=== PATIENT | male | born 1980 | race Caucasian/White ===

== ENCOUNTER 2019-03-26 02:18 | Emergency (ER) | payer OTHER ==
[2019-03-26 03:01] LABS: ADD MAN DIFF? NO
[2019-03-26 03:04] LABS: BASOPHILS % 0.4 % (0.0-2.0); EOSINOPHILS # 0.1 10^3/ul (0.0-0.5); HEMATOCRIT 42.7 % (42.0-52.0); HEMOGLOBIN 13.5 g/dl (14.0-18.0); LYMPHOCYTES # 1.2 10^3/ul (0.8-2.9); LYMPHOCYTES % 13.6 % (15.0-51.0); MEAN CORPUSCULAR HEMOGLOBIN 28.7 pg (29.0-33.0); MEAN CORPUSCULAR HGB CONC 31.6 g/dl (32.0-37.0); MEAN CORPUSCULAR VOLUME 90.7 fl (82.0-101.0); MEAN PLATELET VOLUME 12.2 fl (7.4-10.4); MONOCYTE # 0.6 10^3/ul (0.3-0.9); MONOCYTES % 6.3 % (0.0-11.0); NEUTROPHIL # 7.1 10^3/ul (1.6-7.5); NEUTROPHILS % 78.2 % (39.0-77.0); PLATELET COUNT 286 10^3/UL (140-415); RED BLOOD COUNT 4.71 10^6/ul (4.70-6.10); RED CELL DISTRIBUTION WIDTH 14.6 % (11.5-14.5)
[2019-03-26 03:04] LABS: WHITE BLOOD COUNT 9.1 10^3/ul (4.8-10.8)
[2019-03-26] MEDS: morphine 10 MG INJ IV (03:09)
[2019-03-26 03:21] LABS: ALANINE AMINOTRANSFERASE 498 IU/L (13-69); ALBUMIN 4.5 g/dl (3.3-4.9); ALBUMIN/GLOBULIN RATIO 1.21; ALKALINE PHOSPHATASE 196 IU/L (42-121); ANION GAP 9 (5-13); ASPARTATE AMINO TRANSFERASE 391 IU/L (15-46); BILIRUBIN,INDIRECT 1.2 mg/dl (0-1.1); BLOOD UREA NITROGEN 10 mg/dl (7-20); CALCIUM 9.6 mg/dl (8.4-10.2); CARBON DIOXIDE 25 mmol/L (21-31); CHLORIDE 104 mmol/L (97-110); CREATININE 0.99 mg/dl (0.61-1.24); Estimated GFR > 60 mL/min (>60); GLUCOSE 137 mg/dl (70-220); LIPASE 48 U/L (23-300); POTASSIUM 4.1 mmol/L (3.5-5.1); SODIUM 138 mmol/L (135-144); TOTAL PROTEIN 8.2 g/dl (6.1-8.1)
[2019-03-26] MEDS: SOD CHLORIDE 0.9% 100 ML (04:13)
[2019-03-26] MEDS: IODIXANOL LOCM 100 ML BTL (04:13)
== END 2019-03-26 06:20 | disposition home or self-care (01) ==
LOC: E/R 02:18
DX: K57.32 Diverticulitis of large intestine without perforation or abscess without bleeding (principal); R94.5 Abnormal results of liver function studies
CPT/HCPCS: 36415; 74177; 76705; 80053; 83690; 85025; 96374; 99285-25